=== PATIENT | male | born 1975 | race Asian ===

== ENCOUNTER 2017-07-03 17:37 | Emergency (ER) | payer BC ==
[~2017-07-03] VITALS: Ht 167.6 cm; Wt 113.4 kg
[2017-07-03 17:40] VITALS: BP_SYST 151
[2017-07-03] MEDS ORDERED: ASPIRIN 81 MG TAB.CHEW PO ONE (18:00)
[2017-07-03 18:19] LABS: BASOPHILS % (AUTO) 0.7 % (0.0-2.0); EOSINOPHILS # (AUTO) 0.7 K/uL (0.0-0.4); EOSINOPHILS % (AUTO) 10.7 % (0.0-4.0); HEMATOCRIT 44.4 % (36-54); HEMOGLOBIN 15.3 g/dL (14.0-18.0); LYMPHOCYTES % (AUTO) 28.9 % (20.5-51.5); MEAN CORPUSCULAR HEMOGLOBIN 30 pg (27-31); MEAN CORPUSCULAR HGB CONC 34 % (32-36); MEAN CORPUSCULAR VOLUME 89 fL (79.0-98.0); MONOCYTES # (AUTO) 0.5 K/uL (0.0-1.0); MONOCYTES % (AUTO) 7.3 % (1.7-9.3); NEUTROPHILS # (AUTO) 3.7 K/uL (1.8-7.7); NEUTROPHILS % (AUTO) 52.4 % (40.0-70.0); PLATELET COUNT (AUTO) 231 K/uL (130-430); RED BLOOD CELL COUNT(AUTO) 5.02 MIL/uL (4.2-6.2); RED CELL DISTRIBUTION WIDTH 11.7 % (9.0-15.0); WHITE BLOOD COUNT (AUTO) 6.9 K/uL (4.8-10.8)
[2017-07-03 18:28] LABS: PROTHROMBIN TIME 10.1 SECS (9.5-12.5)
[2017-07-03 18:50] LABS: BARBITURATE, URINE NEGATIVE (NEG <=200); BENZODIAZEPINE, URINE NEGATIVE (NEG <=150); CANNABINOID, URINE NEGATIVE (NEG <=50); COCAINE, URINE NEGATIVE (NEG <=150); METHAMPHETAMINES SCREEN,URINE NEGATIVE (NEG <=500); OPIATE, URINE NEGATIVE (NEG <=100); PHENCYCLIDINE SCREEN,URINE NEGATIVE (NEG <=25); UR TRICYCLIC ANTIDEPRESSANTS NEGATIVE (NEG <=300); URINE AMPHETAMINE NEGATIVE (NEG <=500); URINE METHADONE NEGATIVE (NEG <=200); URINE OXYCODONE SCREEN NEGATIVE (NEG <=100); URINE PROPOXYPHENE SCREEN NEGATIVE (NEG <=300)
[2017-07-03 19:00] LABS: CALCIUM 8.4 mg/dL (8.4-11.0); CREATININE 1.07 mg/dL (0.55-1.30); POTASSIUM 4.1 mmol/L (3.5-5.1)
[2017-07-03 19:05] LABS: ALBUMIN 4.2 g/dL (3.4-4.8)
[2017-07-03 19:05] LABS: BILIRUBIN,URINE NEGATIVE (NEGATIVE); BLOOD, URINE NEGATIVE (NEGATIVE); CLARITY/URINE HAZY (CLEAR); COLOR,URINE YELLOW (YELLOW); GLUCOSE,URINE NEGATIVE (NEGATIVE); KETONES,URINE NEGATIVE (NEGATIVE); LEUKOCYTE ESTERASE ,URINE NEGATIVE (NEGATIVE); NITRITE, URINE NEGATIVE (NEGATIVE); PH,URINE 8.5 (5.0-8.0); PROTEIN URINE NEGATIVE (NEGATIVE)
[2017-07-03 19:11] VITALS: BP_SYST 132
== END 2017-07-03 19:11 | disposition home or self-care (01) ==
LOC: SED 17:37
DX: R00.2 Palpitations (principal); E78.5 Hyperlipidemia, unspecified; R03.0 Elevated blood-pressure reading, without diagnosis of hypertension; F17.210 Nicotine dependence, cigarettes, uncomplicated; Z71.6 Tobacco abuse counseling
CPT/HCPCS: 36415; 71010; 80053; 80307; 81003; 84484; 85025; 85610-TC; 85730-TC; 93005; 99285

== ENCOUNTER 2021-06-25 08:50 | Emergency (ER) | payer BC ==
[~2021-06-25] VITALS: Ht 175.3 cm; Wt 104.3 kg
[2021-06-25 09:10] VITALS: BP_SYST 147
--- NOTE | 2021-06-25 09:10 | NUR ---
Patient to ER bed 3 to gown for evaluation. Side rails up.
--- NOTE | 2021-06-25 09:12 | NUR ---
Pt ambulated to bed 3.Came into ER for lower back pain radiating to right leg 8/ [id number]. 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 Pt states he cannot put on his pants without feeling pain. Pt sitting on [employer] VSS. Breathing is even and unlabored.
--- NOTE | 2021-06-25 09:21 | NUR ---
ER at bedside examining patient.
[2021-06-25] MEDS ORDERED: KETOROLAC TROMETHAMINE 60 MG/2 ML VIAL IM ONE (09:30)
[2021-06-25] MEDS ORDERED: ACET-2634 PO (09:38)
[2021-06-25] MEDS ORDERED: IBUP-1969 PO (09:38)
[2021-06-25] MEDS ORDERED: LIDO1ADH14 TP (09:38)
[2021-06-25 09:58] VITALS: BP_SYST 147
--- NOTE | 2021-06-25 09:58 | NUR ---
Patient given written and verbal discharge instructions and verbalizes understanding. ER MD discussed with patient the results and treatment provided. Patient in stable condition. ID arm band removed. Rx of lidocaine,tylenol,motrin given. Patient educated on pain management and to follow up with PMD. Pain Scale 0/10. Opportunity for questions provided and answered. Medication side effect fact sheet provided.
== END 2021-06-25 09:58 | disposition home or self-care (01) ==
LOC: SED 08:50
DX: M54.41 Lumbago with sciatica, right side (principal); M54.16 Radiculopathy, lumbar region; I10 Essential (primary) hypertension; Z79.899 Other long term (current) drug therapy
CPT/HCPCS: 96372; 99283; J1885